=== PATIENT | female | born 1985 | race African-American/Black ===

== ENCOUNTER 2017-04-26 03:22 | Inpatient (IN) | payer OTHER ==
[~2017-04-26] VITALS: Ht 165.1 cm; Wt 109.8 kg
[~2017-04-26 03:22] MED LIST: ADULT LOW DOSE81 MG PO; ASPIRIN CHILDRE81 MG PO; CARDIZEM CD120 MG PO; CYCLOBENZAPRINE10 M1 PO; FLEXERIL10 MG PO; IBUPROFEN800 M1 PO; LASIX20 MG PO; LEXAPRO20 M1 PO; XANAX0.5 M1 PO
--- NOTE | 2017-04-26 04:07 | ED CARDIAC/CP/PALPITATIONS ---
History of Present Illness General Chief Complaint: Chest Pain Stated Complaint: PER BROTHER"SHE IS IN A-FIB" Source: patient Exam Limitations: no limitations Vital Signs & Intake/Output Vital Signs & Intake/Output Vital Signs Date Time Temp Pulse Resp B/P B/P Pulse O2 O2 Flow FiO2 Mean Ox Delivery Rate 04/26 0649 96.9 76 18 1107/71 99 Room Air 04/26 0637 74 101/63 04/26 0626 98.0 120 20 122/67 04/26 0620 98.0 120 20 122/67 99 Room Air 04/26 0502 78 114/55 04/26 0447 98.0 100 22 136/76 04/26 0447 98.0 100 22 136/76 100 Room Air 04/26 0333 96.7 105 22 151/72 100 Room Air Allergies Coded Allergies: apple (Severe, THROAT ITCHING 12/29/16) Reconcile Medications Alprazolam (Xanax) 0.5 MG TABLET 1 TAB PO BIDP PRN ANXIEY (Reported) Aspirin (Adult Low Dose Aspirin EC) 81 MG TABLET.DR 1 TAB PO DAILY ANTICOAG Escitalopram Oxalate (Lexapro) 20 MG TABLET 1 TAB PO DAILY DEPRESSION ( Reported) Triage Note: 31/ PRESENTS TO ED WITH C/C OF LEFT CHEST PAIN 5/10 WHICH RADIATES TO THE CENTER. NOTED SLIGHT ANXIOUS. PT STATES CHEST PAIN STARTED 15 MINUTES PRIOR TO ARRIVAL HERE. NO DIAPHORESIS. PT HAS HISTORY OF AFIB. PLACED ON HEART MONITOR. AFIB 96-108 BPM. PT REPORTS THAT USUALLY "IF I TAKE MY XANAX IT CONVERTS ITSELF" ADMITS TO 1MG XANAX PRIOR TO ARRIVAL. PT ON SCHEDULE DOSE OF ASPIRIN 81MG PO DAILY. NO C/O SHORTNESS OF BREATHING. EKG DONE. NOTED AFIB. AWAITING EVAL. Triage Nurses Notes Reviewed? yes Onset: Morning Duration: hour(s):, continues in ED, waxing and waning Timing: single episode today Quality/Severity: moderate, pressure Location: LEFT CHEST Radiation: RIGHT CHEST Activities at Onset: rest Prior Chest Pain/Card Workup: PRIOR CP ASSOC WITH EPISODE OF A FIB : No Patient currently breastfeeds: No HPI: Patient presents for evaluation of an episode of atrial fibrillation that occurred abruptly between 2:15 and 2:30 this morning while lying in bed at home. Patient states that she is having a squeezing left chest pain with occasional radiation to the right side and dyspnea. She denies any associated leg swelling caffeine use or use of decongestants. She has had a prior episode of atrial fibrillation with a similar symptom complex. She took a Xanax in an attempt to break the dysrhythmia but it didn't work this time. Patient states she drank a glass of alcohol last night. She denies use of drugs or tobacco. Past History Travel History Traveled to [place] past 21 day No Medical History Any Pertinent Medical History? see below for history Neurological: NONE EENT: NONE Cardiovascular: AFIB Respiratory: asthma Gastrointestinal: NONE Hepatic: NONE Renal: NONE Musculoskeletal: NONE Psychiatric: NONE Endocrine: NONE Blood Disorders: NONE Cancer(s): NONE SECTION WEAVER/Reproductive: PCOS History of MRSA: No History of VRE: No History of CDIFF: No Surgical History Surgical History: non-contributory Psychosocial History Who do you live with Mother Services at Home None What is your primary language Chinese Tobacco Use: Never used ETOH Use: occasional use Illicit Drug Use: denies illicit drug use Family History Family History, If Any: MOTHER (DM). Diabetes mellitus FATHER (DM). Diabetes mellitus Hx Contributory? No Review of Systems Review of Systems Constitutional: Reports: no symptoms. EENTM: Reports: no symptoms. Respiratory: Reports: no symptoms. Cardiovascular: Reports: see HPI. GI: Reports: no symptoms. Genitourinary: Reports: no symptoms. Musculoskeletal: Reports: no symptoms. Skin: Reports: no symptoms. Neurological/Psychological: Reports: no symptoms. Hematologic/Endocrine: Reports: no symptoms. Immunologic/Allergic: Reports: no symptoms. All Other Systems: Reviewed and Negative Physical Exam Physical Exam Cardiovascular: SEE BELOW Comments: Gen.: Well-nourished, well-developed, no acute respiratory distress. Head: Normocephalic, atraumatic. Eyes: Normal inspection bilaterally Ears: Normal inspection bilaterally Nose: Normal inspection Throat/mouth : Moist mucosa Neck: Supple, full range of motion, no goiter Heart: IRRegular rate and rhythm, no murmurs rubs or gallops Lungs: Clear to auscultation bilaterally with normal air entry Chest: Nontender Back: Normal range of motion Abdomen: Soft, nontender, nondistended, normal bowel sounds Extremities: Normal range of motion grossly, equal radial pulses, no cyanosis clubbing or edema Neurologic: Cranial nerves grossly intact, speech is clear Skin: warm and dry Psychiatric: Calm, cooperative, no apparent delusions or hallucinations Core Measures ACS in differential dx? Yes CVA/TIA Diagnosis No Sepsis Present: No Sepsis Focused Exam Completed? No Progress Differential Diagnosis: AMI, atrial fibrillation, hypovolemia, PSVT, PVCs/PACs, V-fib/V-Tach, WPW syndrome Plan of Care: Orders Procedure Date/time Status Heart Healthy Diet 04/26 L Active Misc Message 04/26 0701 Active ED Holding Orders 04/26 0701 Active Admit to inpatient 04/26 07 Active Vital Signs 04/26 07 Active Code Status 04/26 0701 Active THYROID STIMULATING HORMONE 04/26 0406 Complete TROPONIN LEVEL 04/26 0406 Complete T3 UPTAKE (THYROXINE BIND CAP) 04/26 0406 Complete THYROXINE 04/26 0406 Complete PARTIAL THROMBOPLASTIN TIME 04/26 0406 Complete PROTHROMBIN TIME 04/26 0406 Complete MAGNESIUM 04/26 0406 Complete CBC WITHOUT DIFFERENTIAL 04/26 0406 Complete BASIC METABOLIC PANEL 04/26 0406 Complete EKG 04/26 0326 Active Current Medications Sig/Oliver Start time Last Medication Dose Stop Time Status Admin Diltiazem HCl 125 MG Q16H 04/26 0545 AC 04/26 (Cardizem DRIP) 0623 Sodium Chloride 100 ML (Normal Saline 0.9%) Laboratory Tests 04/26/17 0450: Anion Gap 12, Estimated GFR > 60, BUN/Creatinine Ratio 20.0, Glucose 93, Calcium 9.3, Magnesium 1.6, Troponin I < 0.01, TSH 3.980, Thyroxine (T4) 8.6, Thyroxine Binding Indx 31.0, PT 11.8, INR 1.08, APTT 32 04/26/17 0400: CBC w Diff MAN DIFF ORDERED, RBC 4.51, MCV 89.7, MCH 29.3, MCHC 32.7 L, RDW 14.0, MPV 8.6, Gran % 62.4, Lymphocytes % 30.5, Monocytes % 5.4, Eosinophils % 1.4, Basophils % 0.3, Absolute Granulocytes 7.9 H, Absolute Lymphocytes 3.9 H, Absolute Monocytes 0.7 H, Absolute Eosinophils 0.2, Absolute Basophils 0, Platelet Estimate ADEQUATE, Polychromasia 1+ Initial ED EKG: rate (102), AFIB Prior EKG: unchanged (unchanged aside from rate) Comments: 04/26/2017 5:38:40 AM although it seemed that TAMMY might break into a normal sinus rhythm, her heart rate has begun to increase again. I have ordered a Cardizem drip. Incidentally she nodded off to sleep. 04/26/2017 6:16:14 AM heart rate remains elevated so I have ordered a second Cardizem bolus. I am paging Dr. Contreras. 04/26/2017 6:27:24 AM I have updated Dr. Contreras who wishes to hold off on anticoagulation at this time. Hospitalist paged. Departure Departure Disposition: STILL A PATIENT Condition: Stable Clinical Impression Primary Impression: Paroxysmal atrial fibrillation Secondary Impressions: Chest pain Qualifiers: Chest pain type: unspecified Qualified Code: R07.9 - Chest pain, unspecified Referrals: Jessica Andino MD (PCP/Family) Departure Forms: Customer Survey General Discharge Information Admission Note Spoke With: Walter Barroso MD Documentation of Exam: Documentation of any treatments & extenuating circumstances including Concerns Regarding Discharge (functional status, medication knowledge or non-compliance, living conditions, etc.) that warrant an admission rather than observation: Patient presents in a prolonged paroxysm of atrial fibrillation, placing her at high risk of tachycardia dysrhythmia, hypotension, cardioembolic phenomenon and stroke. Patient also experiences significant chest pain when she has paroxysms of atrial fibrillation. She is not currently taking any medications to control rate nor is she on anticoagulation. Given her chest pain and atrial fibrillation I do not feel she is a good candidate for outpatient management. Her heart rate tends to accelerate when she exerts herself and this puts her at increased risk of an adverse outcome if outpatient management were attempted. In addition the patient would not be on a continuous park recreation manager for the possibility of tachydysrhythmias. Given this I feel she requires hospitalization for continuous cardiac monitoring and serial troponins and EKGs. Cardiology consultation should be obtained and patient's heart rate controlled with IV Cardizem drip. Echocardiogram should be considered to assess for valvular dysfunction. Initiation of medical management to control heart rate and to prophylax against cardioembolism should be initiated. Given the patient' s age, electrophysiologic studies for possible ablation therapy should be considered. At this point it is difficult to predict how long the patient will be in this paroxysm of atrial fibrillation. I feel she will require a multiple day hospitalization. Critical Care Note Critical Care Note Critical Care Time: 30-74 min
[2017-04-26 04:55] LABS: ABSOLUTE BASOPHIL COUNT 0 /CUMM (0.0-0.2); ABSOLUTE EOSINOPHIL COUNT 0.2 /CUMM (0.0-0.7); ABSOLUTE GRANULOCYTE CT 7.9 /CUMM (1.4-6.5); ABSOLUTE LYMPH COUNT 3.9 /CUMM (1.2-3.4); ABSOLUTE MONOCYTE COUNT 0.7 /CUMM (0.10-0.60); BASOPHIL % 0.3 % (0.0-2.0); EOSINOPHIL % 1.4 % (0-5); GRANULOCYTE % 62.4 % (42.2-75.2); HEMATOCRIT 40.4 % (37-47); MEAN CORPUSCULAR HGB 29.3 PG (27.0-31.0); MEAN CORPUSCULAR HGB CONC 32.7 G/DL (33.0-37.0); MEAN CORPUSCULAR VOLUME 89.7 FL (81.0-99.0); MEAN PLATELET VOLUME 8.6 FL (7.4-10.4); PLATELET COUNT 347 /CUMM (130-400); RED BLOOD CELL CT 4.51 /CUMM (4.20-5.40); WHITE BLOOD CELL COUNT 12.7 /CUMM (4.8-10.8)
[2017-04-26 05:16] LABS: PT 11.8 SEC (9.4-12.5); PTT 32 SEC (25-37)
--- NOTE | 2017-04-26 09:22 | History & Physical ---
AkilajodieemilieJosehernando 04/26/17 0922: General Information and HPI MD Statement: I have seen and personally examined TAMMY DIMAS and documented this H&P. The patient is a 31 year old F who presented with a patient stated chief complaint of chest pain and palpitations History of Present Illness: Ms Dimas is a 31 year old woman w/ a PMHx of paroxymal atrial fibrillation (dx '2013 and episode on 12/2017 w/ spontaneous cardioversion) not on any anticoagulant/ablation done, PCOS, asthma came to the hospital with a chief concern of left-sided chest pain radiating to the right side, and an episode of palpitations. Chest pain started when she started having palpitations around 240 AM, pain located on the left side of the chest described it as squeezing pain, severity 7 /10; radiation to right side and left side of neck, aggravated by exertion and relieved after receiving morphine in the ED, lasted for grace an hour. Also reported associated dyspnea on exertion when she walked to the bathroom at the time. No diaphoresis, or loss of consciousness, vision changes noted. She also reported palpitations, which is the third episode so far since 2013 with last episode less than a week ago which resolved after taking xanax. Episode started around 240 AM, and continues to have palpitations. Not on any anticoagulant, rate controlling medications. Reported use of alcohol last night, glass of wine which is unusual for her. No report of use of intravenous drug use or cocaine. No neurological deficits, except some eye twitching at that time. No abdominal pain, dysuria, cough, fever or other signs of infection. Allergies/Medications Allergies: Coded Allergies: apple (Severe, THROAT ITCHING 12/29/16) Home Med list Alprazolam (Xanax) 0.5 MG TABLET 1 TAB PO BIDP PRN ANXIEY (Reported) Aspirin (Adult Low Dose Aspirin EC) 81 MG TABLET.DR 1 TAB PO DAILY ANTICOAG Escitalopram Oxalate (Lexapro) 20 MG TABLET 1 TAB PO DAILY DEPRESSION ( Reported) Past History Travel History Traveled to [place] past 21 day No Medical History Neurological: NONE EENT: NONE Cardiovascular: AFIB Respiratory: asthma Gastrointestinal: NONE Hepatic: NONE Renal: NONE Musculoskeletal: NONE Psychiatric: NONE Endocrine: NONE Blood Disorders: NONE Cancer(s): NONE 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 Diabetes mellitus FATHER (DM). Diabetes mellitus Psychosocial History Who Do You Live With? spouse, child Services at Home: None ETOH Use: occasional use Illicit Drug Use: denies illicit drug use Functional Ability ADLs Independent: dressing, eating, toileting, bathing. Ambulation: independent IADLs Independent: shopping, housework, finances, food prep, telephone, transportation , medication admin. Review of Systems Review of Systems Constitutional: Reports: see HPI. Exam & Diagnostic Data Last 24 Hrs of Vital Signs/I&O Vital Signs Date Time Temp Pulse Resp B/P B/P Pulse O2 O2 Flow FiO2 Mean Ox Delivery Rate 04/26 0940 97.6 78 18 102/70 98 Room Air 04/26 0845 97.4 78 20 108/56 100 Room Air 04/26 0649 96.9 76 18 1107/71 99 Room Air 04/26 0637 74 101/63 04/26 0626 98.0 120 20 122/67 04/26 0620 98.0 120 20 122/67 99 Room Air 04/26 0502 78 114/55 04/26 0447 98.0 100 22 136/76 04/26 0447 98.0 100 22 136/76 100 Room Air 04/26 0333 96.7 105 22 151/72 100 Room Air Intake & Output 04/26 1600 04/26 0800 04/26 0000 Intake Total 0 Output Total Balance 0 Intake, Oral 0 Patient 244 lb Weight Weight Reported by Patient Measurement Method Physical Exam General Appearance No Acute Distress Skin No Rashes, No Breakdown Skin Temp/Moisture Exam: Warm/Dry Sepsis Skin Exam (color): Normal for Ethnicity HEENT Atraumatic, PERRLA, EOMI Neck Supple Lymphatic Axillary nl, Cervical nl Cardiovascular Normal S1, Normal S2, irregularly irregular pulse Lungs Normal Air Movement Abdomen Normal Bowel Sounds, Soft, No Tenderness, No Hepatospenomegaly Neurological Normal Speech, Strength at 5/5 X4 Ext, Normal Tone, Sensation Intact, Cranial Nerves 3-12 NL, Reflexes 2+ Extremities No Clubbing, No Cyanosis, No Edema, Normal Pulses Vascular Pulses Symmetrical Sepsis Peripheral Pulse Location: Dorsalis Pedis Sepsis Peripheral Pulse Exam: Bounding Last 24 Hrs of Labs/Teddy: Laboratory Tests 04/26/17 0450: Anion Gap 12, Estimated GFR > 60, BUN/Creatinine Ratio 20.0, Glucose 93, Calcium 9.3, Magnesium 1.6, Troponin I < 0.01, TSH 3.980, Thyroxine (T4) 8.6, Thyroxine Binding Indx 31.0, PT 11.8, INR 1.08, APTT 32 04/26/17 0400: CBC w Diff MAN DIFF ORDERED, RBC 4.51, MCV 89.7, MCH 29.3, MCHC 32.7 L, RDW 14.0, MPV 8.6, Gran % 62.4, Lymphocytes % 30.5, Monocytes % 5.4, Eosinophils % 1.4, Basophils % 0.3, Absolute Granulocytes 7.9 H, Absolute Lymphocytes 3.9 H, Absolute Monocytes 0.7 H, Absolute Eosinophils 0.2, Absolute Basophils 0, Platelet Estimate ADEQUATE, Polychromasia 1+ Assessment/Plan Assessment: Ms Dimas is a 31 year old woman w/ a PMHx of paroxymal atrial fibrillation (dx '2013, recent episodes 12/2017 w/ spontaneous cardioversion, and one week ago) not on any anticoagulant/ablation done, PCOS, asthma came to the hospital with a chief concern of left-sided chest pain radiating to the right side, and an episode of palpitations likely due to atrial fibrillation. At the time of admission, vitals-temperature 96.7, pulse rate 105, respiration 22, blood pressure 151/72, 100% on room air. Pertinent lab findings: WBC 12.7 (likely reactive, with no granulocytosis), hemoglobin 13.2, platelets 347. Electrolytes-sodium 141, potassium 4.1, magnesium 1.6. Renal function-BUN 16, creatinine 0.8. Cardiac enzymes-troponin I is 0.01. TSH 3.98. INR 1.08. Last echo 2013 revealed Normal left ventricular systolic function. Left ventricular wall thickness within upper limits of normal.No significant valvular abnormalities noted. EKG reveals absent P waves, irregularly irregular RR intervals, HR well controlled. No STTWI. Problem list: #1 paroxysmal A. fib #2 unstable angina Etiology in this case of this arrhythmia with seemingly disorganized atrial depolarizations likely atrial fibrillation. Immediate treatment becomes imperative because it causes loss of organized atrial contractions and rapid ventricular rate that decreases his cardiac output and makes the prone to embolus formation, but currently is rate controlled. Etiology of Afib is likely recent alcohol use or obesity. History indicates that the symptoms began < 48 hours, which would direct the treatment options such as cardioversion and anticoagulation. Other differentials include atrial flutter with atypical AV block, multifocal atrial tachycardia, sinus rhythm with frequent PACs. CHADVASC score 1. Wells score of 1.5. Admit the patient to telemetry service Monitor vitals closely for changes in hemodynamic status. Immediate synchronized electrical cardioversion if the patient is unstable. Monitor for fever. She was started on iv cardizem, which could be continued. Will change it to po betablocker after discussing w/ Dr. Contreras. check utox Echocardiogram to evaluate valvular fn and EF. If the heart rate is not adequately controlled consider amiodarone for refractory atrial fibrillation. Plan for elective cardioversion with making sure the patient is anticoagulated with therapeutic levels for at least 4 weeks. But would defer the decision to the apprentice cosmetologist at this time. Would also consider work up for PE. Continue ASA. Considering her chest pain, she should get loading dose of ASA. Serial ekgs and cardiac enzymes Cardiology consult. As Ranked By This Provider Problem List: 1. Chest pain Qualifiers Chest pain type: unspecified Qualified Code: R07.9 - Chest pain, unspecified 2. Paroxysmal a-fib 3. Dyspnea Core Measures/Misc (10/27) Acute Coronary Syndrome ACS Diagnosis: Yes Congestive Heart Failure Congestive Heart Failure Diagnosis No Cerebrovascular Accident CVA/TIA Diagnosis: No VTE (View Protocol) VTE Risk Factors No risk factors No Mechanical VTE Prophylaxis d/t LowRisk-No Interven Req'd No VTE Pharm Prophylaxis d/t LowRisk-No Interven Req'd Sepsis (View protocol) Sepsis Present: No Walter Barroso MD 04/26/17 1428: Resident Review Statement Resident Statement: examined this patient, discussed with pr internship, agreed with pr internship, discussed with nursing Attending MD Review Statement Attending Statement Attending MD Statement: examined this patient, discuss w/resident/PA/COORDINATOR VOLUNTEER SERVICES, agreed w/resident/PA/COORDINATOR VOLUNTEER SERVICES, discussed with nursing Attending Assessment/Plan: Ms. Kauffman is a 31-year-old female with a history of paroxysmal atrial fibrillation, has not undergone cardioversion, has been spontaneously reverted back to sinus rhythm presents with complaints of palpitation and chest pain located on the left side. On arrival in the ER found to be tachycardic and was given a bolus of Cardizem push and was started on Cardizem infusion. Currently patient denies specific symptoms of chest pain shortness of breath lightheadedness dizziness. Examination blood pressure is 102/70 heart rate is 78 patient is afebrile and breathing comfortably and 18 bpm Troponins are negative initially and will be trended. EKG is showing atrial fibrillation with a rate of about 75. Echocardiogram obtained 2 years ago shows preserved LV function with no significant valvular abnormalities. Assessment and plan 1. Paroxysmal atrial fibrillation 2. Chest pain 3. Overweight/obesity Continue with Cardizem infusion. Plan to initiate beta landon and then wean down the Cardizem drip. Thyroid function within normal limits. Patient needs to be tested for obstructive sleep apnea as an outpatient. Appreciate cardiology recommendations.
[2017-04-26 09:40] VITALS: BP 102/70
[2017-04-26 14:55] VITALS: BP 90/62
[2017-04-26 22:44] VITALS: BP 96/66
[2017-04-27 07:06] VITALS: BP 102/88
[2017-04-27 07:29] LABS: ABSOLUTE BASOPHIL COUNT 0 /CUMM (0.0-0.2); ABSOLUTE EOSINOPHIL COUNT 0.2 /CUMM (0.0-0.7); ABSOLUTE GRANULOCYTE CT 4.8 /CUMM (1.4-6.5); ABSOLUTE LYMPH COUNT 3.4 /CUMM (1.2-3.4); ABSOLUTE MONOCYTE COUNT 0.5 /CUMM (0.10-0.60); BASOPHIL % 0.3 % (0.0-2.0); GRANULOCYTE % 53.7 % (42.2-75.2); HEMATOCRIT 37.8 % (37-47); MEAN CORPUSCULAR HGB 29.4 PG (27.0-31.0); MEAN CORPUSCULAR HGB CONC 32.8 G/DL (33.0-37.0); MEAN CORPUSCULAR VOLUME 89.8 FL (81.0-99.0); MEAN PLATELET VOLUME 8.5 FL (7.4-10.4); PLATELET COUNT 335 /CUMM (130-400); RBC DISTRIBUTION WIDTH 13.8 % (11.5-14.5); RED BLOOD CELL CT 4.21 /CUMM (4.20-5.40)
--- NOTE | 2017-04-27 09:00 | PN- Housestaff ---
Samantha ARELLANO,Nella 04/27/17 0859: Subjective Follow-up For: 1. Paroxysmal atrial fibrillation 2. Chest pain 3. Overweight/obesity Tele-Events Since Last Visit: Heart rate dropped down to 50, A. fib, Subjective: Patient was seen and examined at bedside, she only complains of shortness of breath when moving, her heart rate dropped down to the 50s overnight and Cardizem drip had to be stopped Review of Systems Constitutional: Reports: see HPI. Objective Last 24 Hrs of Vital Signs/I&O Vital Signs Date Time Temp Pulse Resp B/P B/P Pulse O2 O2 Flow FiO2 Mean Ox Delivery Rate 04/27 0706 98.2 82 20 102/88 97 04/26 2244 98.3 80 18 96/66 99 Room Air 04/26 1455 97.7 72 18 90/62 97 Room Air 04/26 0940 97.6 78 18 102/70 98 Room Air Physical Exam General Appearance: Alert, Oriented X3, Cooperative, No Acute Distress Skin: No Rashes, No Breakdown, No Significant Lesion HEENT: Atraumatic, PERRLA, EOMI, Mucous Membr. moist/pink Neck: Supple, No JVD Cardiovascular: Normal S1, Normal S2, No Murmurs Lungs: Clear to Auscultation Abdomen: Normal Bowel Sounds, Soft, No Tenderness Neurological: Normal Speech, Strength at 5/5 X4 Ext, Normal Tone, Sensation Intact Extremities: No Clubbing, No Cyanosis, No Edema Vascular: Normal Pulses Assessment/Plan Assessment: Ms Dahl is a 31 year old woman w/ a PMHx of paroxymal atrial fibrillation (dx '2013, recent episodes 12/2017 w/ spontaneous cardioversion, and one week ago) not on any anticoagulant/ablation done, PCOS, asthma came to the hospital with a chief concern of left-sided chest pain radiating to the right side, and an episode of palpitations likely due to atrial fibrillation. History indicates that the symptoms began < 48 hours, which would direct the treatment options such as cardioversion and anticoagulation. Other differentials include atrial flutter with atypical AV block, multifocal atrial tachycardia, sinus rhythm with frequent PACs. CHADVASC score 1. Wells score of 1.5. Problem list: #1 paroxysmal A. fib #2 unstable angina Plan: Continue to monitor on elementary ell teacher vitals closely for changes in hemodynamic status. Immediate synchronized electrical cardioversion if the patient is unstable. Monitor for fever. DC Cardizem drip due to bradycardia Start metoprolol 12.5 twice daily for rate control Echocardiogram to evaluate valvular fn and EF. If the heart rate is not adequately controlled consider amiodarone for refractory atrial fibrillation. Plan for elective cardioversion with making sure the patient is anticoagulated with therapeutic levels for at least 4 weeks. But would defer the decision to the supervisor extrusion at this time. Would also consider work up for PE. Continue ASA. Considering her chest pain, she should get loading dose of ASA. Serial ekgs and cardiac enzymes were negative which ruled out ACS Follow-up on cardiology recommendation Full code Heart healthy diet DVT prophylaxis with subcutaneous heparin Problem List: 1. Paroxysmal a-fib Pain Ratin Pain Location: N/A Pain Goal: Remain pain free Pain Plan: PATHW[facility] Tomorrow's Labs & Rationales: CBC BEP Walter Barroso MD 04/27/17 1227: Attending MD Review Statement Attending Statement Attending MD Statement: examined this patient, discuss w/resident/PA/STEAM BOX TENDER, agreed w/resident/PA/STEAM BOX TENDER, reviewed EMR data (avail) Attending Assessment/Plan: Ms. Kauffman is a 31-year-old female with a history of paroxysmal atrial fibrillation, has not undergone cardioversion in the past, has been spontaneously reverted back to sinus rhythm presents with complaints of palpitations and chest pain located on the left side. On arrival in the ER found to be tachycardic and was given a bolus of Cardizem push and was started on Cardizem infusion. Troponins has been negative. Overnight patient became bradycardic into the 40s and 50s. Patient underwent echocardiogram this morning. Patient is complaining of shortness of breath and palpitations. Assessment and plan 1. Paroxysmal atrial fibrillation 2. Chest pain 3. Overweight/obesity Initiated on oral beta blockers, cardizem infusion discontinued. Thyroid function within normal limits. Patient needs to be tested for obstructive sleep apnea as an outpatient. Appreciate cardiology recommendations. We will follow up on chest x-ray and proBNP.
--- NOTE | 2017-04-27 09:29 | PN- Cardiology ---
Subjective Subjective: The patient is doing okay, however, she remains mildly short of breath and continues to have palpitations with activity. No other cardiac symptoms. She remains in atrial fibrillation. Rate is largely well controlled except with activity. Objective Vital Signs and I&Os Vital Signs Date Time Temp Pulse Resp B/P B/P Pulse O2 O2 Flow FiO2 Mean Ox Delivery Rate 04/27 0706 98.2 82 20 102/88 97 04/26 2244 98.3 80 18 96/66 99 Room Air 04/26 1455 97.7 72 18 90/62 97 Room Air 04/26 0940 97.6 78 18 102/70 98 Room Air Intake & Output 04/27 1600 04/27 0800 04/27 0000 04/26 1600 04/26 0800 04/26 0000 Intake Total 530 0 Output Total Balance 530 0 Intake, IV 30 Intake, Oral 500 0 Patient 242 lb 244 lb Weight Weight Reported by Patient Reported by Patient Measurement Method Physical Exam: General Appearance No Acute Distress Skin normal HEENT Atraumatic, PERRLA, EOMI Neck Supple, JVP normal, carotids normal bilaterally Lymphatic Axillary nl, Cervical nl Cardiovascular Normal S1, Normal S2, irregularly irregular pulse Lungs clear to auscultation and percussion bilaterally Abdomen Normal Bowel Sounds, Soft, No Tenderness, No Hepatospenomegaly Neurological Normal/nonfocal Extremities No Clubbing, No Cyanosis, No Edema, Normal Pulses Vascular Pulses Symmetrical Current Medications: Current Medications Sig/Oliver Start time Last Medication Dose Route Stop Time Status Admin Acetaminophen 650 MG Q8P PRN 04/26 0930 AC PO Alprazolam 0.5 MG DAILY PRN 04/26 0930 AC 04/26 PO 05/03 0929 1743 Aspirin 325 MG ONCE ONE 04/26 0930 DC 04/26 PO 04/26 0931 1525 Aspirin Buffered 81 MG DAILY 04/27 1000 AC 04/27 PO 0810 Diltiazem HCl 125 MG Q24H 04/26 2300 DC Sodium Chloride 100 ML IV Diltiazem HCl 125 MG Q16H 04/26 0545 DC 04/26 Sodium Chloride 100 ML IV 04/26 2259 2134 Escitalopram Oxalate 20 MG 1700 04/26 1700 AC 04/26 PO 1525 Heparin Sodium 5,000 UNIT Q8 04/26 1400 AC 04/27 (Porcine) SC 0620 Oxycodone HCl 5 MG Q8P PRN 04/26 929 DC PO Tramadol HCl 50 MG Q8P PRN 04/26 929 DC PO Results Last 48 Hrs of Labs/Mics: Laboratory Tests 04/27/17 0601: Anion Gap 9, Estimated GFR > 60, BUN/Creatinine Ratio 18.9, CBC w Diff NO MAN DIFF REQ, RBC 4.21, MCV 89.8, MCH 29.4, MCHC 32.8 L, RDW 13.8, MPV 8.5, Gran % 53.7, Lymphocytes % 38.1, Monocytes % 5.9, Eosinophils % 2.0, Basophils % 0.3, Absolute Granulocytes 4.8, Absolute Lymphocytes 3.4, Absolute Monocytes 0.5, Absolute Eosinophils 0.2, Absolute Basophils 0 04/26/17 1808: Troponin I < 0.01 04/26/17 1255: Troponin I < 0.01 04/26/17 1242: Urine Opiates Screen 2226.00 H, Methadone Screen 61, Barbiturate Screen < 60, Ur Phencyclidine Scrn < 6.00, Amphetamines Screen < 100, U Benzodiazepines Scrn 630 H, Urine Cocaine Screen < 50, Urine Cannabis Screen < 5.00 04/26/17 1004: Urinalysis LIGHT H, Urine Color BLDY H, Urine Clarity HAZY H, Urine pH 5.5, Ur Specific [place] >= 1.030, Urine Protein 100 H, Urine Ketones NEG, Urine Nitrite NEG, Urine Bilirubin NEG@ICTO, Urine Urobilinogen 0.2, Ur Leukocyte Esterase SMALL H, Ur Microscopic SEDIMENT EXAMINED, Urine RBC >75 H, Urine WBC > 75 H, Ur Epithelial Cells MOD H, Urine Bacteria FEW H, Urine Mucus FEW, Urine Hemoglobin LARGE H, Urine Glucose NEG 04/26/17 0450: Anion Gap 12, Estimated GFR > 60, BUN/Creatinine Ratio 20.0, Glucose 93, Calcium 9.3, Magnesium 1.6, Troponin I < 0.01, TSH 3.980, Free T4 1.12, Thyroxine (T4) 8.6, Thyroxine Binding Indx 31.0, PT 11.8, INR 1.08, APTT 32 04/26/17 0400: CBC w Diff MAN DIFF ORDERED, RBC 4.51, MCV 89.7, MCH 29.3, MCHC 32.7 L, RDW 14.0, MPV 8.6, Gran % 62.4, Lymphocytes % 30.5, Monocytes % 5.4, Eosinophils % 1.4, Basophils % 0.3, Absolute Granulocytes 7.9 H, Absolute Lymphocytes 3.9 H, Absolute Monocytes 0.7 H, Absolute Eosinophils 0.2, Absolute Basophils 0, Platelet Estimate ADEQUATE, Polychromasia 1+ Assessment/Plan Assessment/Plan Assessment: 1. Paroxysmal atrial fibrillation 2. Chest pain syndrome in Recommendations: -The patient remains in atrial fibrillation today, with better rate control. She continues to have intermittent symptoms with activity of palpitations and shortness of breath. -I had an extended discussion with the patient about the possible options at the present time. -The patient is reluctant to pursue cardioversion for now and would prefer to watch and see if she converts on her own as she has previously. -Continue metoprolol -If necessary, increase dose to 25 mg twice a day -Start eliquis 5 mg twice a day and subsequent lead discontinue IV heparin -Monitor the patient overnight. -In the morning, if the patient has reverted to sinus rhythm, discharge on current medications for the next week -If the patient has failed to convert on her own, the options would include proceeding to JIMENA cardioversion or discharging the patient on metoprolol and anticoagulation with close outpatient follow-up and eventual JIMENA cardioversion if she does not revert to sinus rhythm on her own. -For now, the patient's preference would be to continue oral medicines, discharge, and reassess in one week. Continue telemetry? Yes
[2017-04-27 14:36] VITALS: BP 118/70
--- NOTE | 2017-04-27 16:19 | RADIOLOGY REPORT ---
EXAMINATION: XR PORTABLE CHEST CLINICAL INFORMATION: Shortness of breath COMPARISON: 06/10/2013, 12/29/2016 TECHNIQUE: Portable frontal view of the chest was obtained. FINDINGS: No significant abnormality is noted involving the heart, lungs, mediastinum, bony thorax or soft tissues. IMPRESSION: No acute cardiopulmonary disease.
--- NOTE | 2017-04-27 20:56 | Event Note ---
Event Note Event Note: S; I was informed millimeters the patient is complaining of shortness of breath. B; Patient is a 31 year old woman w/ a PMHx of paroxymal atrial fibrillation not on any anticoagulant/ablation done, PCOS, asthma was being admitted to the hospital for paroxysmal atrial fibrillation and unstable angina. Cardizem Drip was discontinued yesterday given heart rate bradycardia down to 40s. Vital signs stable with heart rate ranging from 90s to 105. Heart sounds irregular with Normal S1-S2, lungs clear to auscultation A/P; Patient states she started feeling short of breath after she had her dinner, with similar episodes of shortness of breath occurring at home as well shortly after eating. Also complaining of left-sided chest discomfort and palpitations. Denies any cough or wheezing. She uses Symbicort inhaler for asthma at home but states that she hasn't used it in a while. Patient in the meanwhile got out of the bed to use the restroom and heart rate went up to 169. Patient was evaluated Respiratory therapist who did not recommend any breathing treatments at that time given stable vitals and lungs clear on auscultation. Stat Troponin and EKG were obtained which remained negative with no ST-T wave changes. Patient was given 1 dose of Xanax o.5 mg,, patient felt better afterwards. Shortness of breath and chest discomfort likely secondary to tachycardia and anxiety. We'll continue to monitor.
[2017-04-27 22:39] VITALS: BP 124/64
[2017-04-28 06:29] VITALS: BP 92/57
[2017-04-28] MEDS ORDERED: ELIQUIS5 M1 PO (07:33)
[2017-04-28] MEDS ORDERED: METOPROLOL TART25 M1 PO ×2 (07:33→11:23)
--- NOTE | 2017-04-28 07:34 | Patient Discharge Instructions ---
Discharge Instructions General Discharge Information Special Instructions: - Please follow up with your jewel waxer Dr. Contreras within 1-2 weeks of discharge. - Please follow up with your primary care physician within 1-2 weeks of discharge. Inform your primary care physician of this admission to [facility]. - Continue your current medications per discharge instructions. - Please watch for these problems: Fever, Chills, Nausea, Vomiting, Shortness of Breath, Productive Cough, Chest Pain/Discomfort, Abdominal Pain, Active Bleeding or Bloody urine/stool. Diet Continue normal diet: Yes Recommended Diet: Heart Healthy Activity Full Activity/No Limits: Yes Acute Coronary Syndrome Inclusion Criteria At DC or during hospital stay patient has or had the following: ACS DIAGNOSIS No Discharge Core Measures Meds if any: Prescribed or Continued at Discharge Meds if any: NOT Prescribed or Continued at Discharge Congestive Heart Failure Inclusion Criteria At DC or during hospital stay patient has or had the following: CHF DIAGNOSIS No Discharge Core Measures Meds if any: Prescribed or Continued at Discharge Meds if any: NOT Prescribed or Continued at Discharge Cerebrovascular accident Inclusion Criteria At DC or during hospital stay patient has or had the following: CVA/TIA Diagnosis No Discharge Core Measures Meds if any: Prescribed or Continued at Discharge Meds if any: NOT Prescribed or Continued at Discharge Venous thromboembolism Inclusion Criteria VTE Diagnosis No VTE Type NONE VTE Confirmed by (Test) NONE Discharge Core Measures - Per Current guidelines, there needs to be overlap - treatment for the first 5 days of Warfarin therapy. - If discharged on Warfarin prior to 5 days of - overlap therapy, the patient will need to be - assessed for post discharge needs including - *Post discharge parental anticoagulation - *Warfarin and/or parental anticoagulation education - *Follow up date to check INR post discharge At least 5 days overlap therapy as Inpatient No Meds if any: Prescribed or Continued at Discharge Note: Overlap Therapy is Warfarin and Anticoagulant Meds if any: NOT Prescribed or Continued at Discharge Note: Overlap Therapy is Warfarin and Anticoagulant Meds if any: NOT Prescribed or Continued at Discharge
--- NOTE | 2017-04-28 07:59 | PN- Housestaff ---
Liliana Abreu 04/28/17 0759: Subjective Follow-up For: 1. Paroxysmal atrial fibrillation 2. Chest pain 3. Overweight/obesity Tele-Events Since Last Visit: A-fib in 80s once overnight and converted spontaneously to NSR 80s Subjective: No overnight event. Patient denied CP/SOB currently. Denied cardioversion. Would like to be discharged today. No other specific complaint. Review of Systems Constitutional: Reports: see HPI. Objective Last 24 Hrs of Vital Signs/I&O Vital Signs Date Time Temp Pulse Resp B/P B/P Pulse O2 O2 Flow FiO2 Mean Ox Delivery Rate 04/28 628 97.8 81 20 92/57 98 04/28 0000 Room Air 04/27 2239 98.4 110 20 124/64 98 Room Air 04/277 Room Air Room Air 04/279 106 20 138/80 04/27 1436 98.1 106 20 118/70 98 Room Air 04/27 1241 78 118/60 Intake & Output 04/28 1600 04/28 0800 04/28 0000 Intake Total 220 680 Output Total 300 Balance 220 380 Intake, Oral 220 680 Output, Urine 300 Patient 109.769 kg Weight Weight Bed scale Measurement Method Physical Exam General Appearance: Alert, Oriented X3, Cooperative, No Acute Distress Cardiovascular: Regular Rate Lungs: Clear to Auscultation, Normal Air Movement Abdomen: Normal Bowel Sounds, Soft, No Tenderness Neurological: Normal Speech Extremities: No Edema, Normal Pulses Current Medications: Current Medications Sig/Oliver Start time Last Medication Dose Route Stop Time Status Admin Acetaminophen 650 MG Q8P PRN 04/26 0930 AC PO Albuterol Sulfate 2 PUF Q4P PRN 04/27 2145 AC INH Alprazolam 0.5 MG DAILY PRN 04/26 0930 AC 04/27 PO 05/03 0929 2220 Apixaban 5 MG BID 04/27 1412 AC 04/27 PO 2119 Aspirin Buffered 81 MG DAILY 04/27 1000 AC 04/27 PO 0810 Escitalopram Oxalate 20 MG 1700 04/26 1700 AC 04/27 PO 1537 Heparin Sodium 5,000 UNIT Q8 04/26 1400 DC 04/27 (Porcine) SC 1409 Metoprolol Tartrate 12.5 MG BID 04/27 1000 AC 04/27 PO 211 Last 24 Hrs of Lab/Teddy Results Last 24 Hrs of Labs/Mics: Laboratory Tests 04/28/17 0630: Anion Gap 9, Estimated GFR > 60, BUN/Creatinine Ratio 17.8, CBC w Diff NO MAN DIFF REQ, RBC 4.31, MCV 89.2, MCH 29.5, MCHC 33.1, RDW 14.0, MPV 8.4, Gran % 57.3, Lymphocytes % 34.3, Monocytes % 6.2, Eosinophils % 1.9, Basophils % 0.3, Absolute Granulocytes 5.3, Absolute Lymphocytes 3.2, Absolute Monocytes 0.6, Absolute Eosinophils 0.2, Absolute Basophils 0 04/27/17 2200: Troponin I < 0.01 04/27/17 1230: Cvo-T-Rwgikdhaulx Pept Cancelled Assessment/Plan Assessment: Ms Dahl is a 31 year old woman w/ a PMHx of paroxymal atrial fibrillation (dx '2013, recent episodes 12/2017 w/ spontaneous cardioversion, and one week ago) not on any anticoagulant/ablation done, PCOS, asthma came to the hospital with a chief concern of left-sided chest pain radiating to the right side, and an episode of palpitations likely due to atrial fibrillation. History indicates that the symptoms began < 48 hours, which would direct the treatment options such as cardioversion and anticoagulation. Other differentials include atrial flutter with atypical AV block, multifocal atrial tachycardia, sinus rhythm with frequent PACs. CHADVASC score 1. Wells score of 1.5. Problem list: #1 paroxysmal A. fib #2 unstable angina Plan: - Monitor vitals closely for changes in hemodynamic status. Immediate synchronized electrical cardioversion if the patient is unstable. - DCed Cardizem drip due to bradycardia - Started metoprolol 12.5 twice daily for rate control - Pending Echocardiogram to evaluate valvular fn and EF. - Plan for elective cardioversion with making sure the patient is anticoagulated with therapeutic levels for at least 4 weeks. But would defer the decision to the clinical esthetician at this time. However, patient would not want cardioversion for now. - Started on eliquis 5mg bid, as Patient's [id number] score is 1 (Female). However, will resume patient's ASA 81 and discontinue eliquis as patient's age and current normal sinus rhythm would not warrant long-term anticoagulation. - EKG 04/28 AM showed NSR, with negative trop. - Pending discharge and follow-up on cardiology recommendation Full code Heart healthy diet DVT prophylaxis with subcutaneous heparin + ALPS Problem List: 1. Paroxysmal a-fib Pain Ratin Pain Location: NA Pain Goal: Remain pain free Pain Plan: see AP Tomorrow's Labs & Rationales: NUHA Barajas MD,Rachellmariela 04/28/17 1038: Attending MD Review Statement Attending Statement Attending MD Statement: examined this patient, discuss w/resident/PA/REGIONAL TRUCK DRIVER, agreed w/resident/PA/REGIONAL TRUCK DRIVER, reviewed EMR data (avail), discussed with nursing, discussed with case mgmt, amended to note Attending Assessment/Plan: Patient seen and examined. Resting comfortably not in any acute distress. Apparently she converted back to normal sinus rhythm this morning. She remains asymptomatic. She is hemodynamically stable. On examination of heart sounds are regular with no audible murmur. Lungs are clear to auscultation bilaterally. She has no peripheral edema. She appears to be going in and out of atrial fibrillation frequently. Will continue metoprolol orally for rate control and follow-up with the cardiology service regarding other recommendations regarding rate versus rhythm control. Due to her low stroke risk she will be discharged only on aspirin rather than continuing anticoagulation therapy that was initially started. She will be counseled on the need for anticoagulant therapy and its risks. She verbalized understanding. If she is cleared by the cardiology service she may be discharged today and follow-up in the outpatient.
[2017-04-28 08:14] LABS: ABSOLUTE BASOPHIL COUNT 0 /CUMM (0.0-0.2); ABSOLUTE EOSINOPHIL COUNT 0.2 /CUMM (0.0-0.7); ABSOLUTE GRANULOCYTE CT 5.3 /CUMM (1.4-6.5); ABSOLUTE LYMPH COUNT 3.2 /CUMM (1.2-3.4); ABSOLUTE MONOCYTE COUNT 0.6 /CUMM (0.10-0.60); BASOPHIL % 0.3 % (0.0-2.0); EOSINOPHIL % 1.9 % (0-5); GRANULOCYTE % 57.3 % (42.2-75.2); HEMATOCRIT 38.5 % (37-47); MEAN CORPUSCULAR HGB 29.5 PG (27.0-31.0); MEAN CORPUSCULAR HGB CONC 33.1 G/DL (33.0-37.0); MEAN CORPUSCULAR VOLUME 89.2 FL (81.0-99.0); MEAN PLATELET VOLUME 8.4 FL (7.4-10.4); PLATELET COUNT 346 /CUMM (130-400); RED BLOOD CELL CT 4.31 /CUMM (4.20-5.40); WHITE BLOOD CELL COUNT 9.3 /CUMM (4.8-10.8)
[2017-04-28 10:19] VITALS: BP 116/76
--- NOTE | 2017-04-28 11:24 | Discharge Summary ---
Visit Information Visit Dates Admission Date: 04/26/17 Discharge Date: 04/28/2017 Hospital Course Course Attending Physician: Ralph Barajas MD Primary Care Physician: Sina ARELLANO,Jessica Torres Hospital Course: Ms Dahl is a 31 year old woman w/ a PMHx of paroxymal atrial fibrillation (dx '2013, recent episodes 12/2017 w/ spontaneous cardioversion, and one week ago) not on any anticoagulant/ablation done, PCOS, asthma came to the hospital with a chief concern of left-sided chest pain radiating to the right side, and an episode of palpitations likely due to atrial fibrillation. History indicates that the symptoms began < 48 hours, which would direct the treatment options such as cardioversion and anticoagulation. Other differentials include atrial flutter with atypical AV block, multifocal atrial tachycardia, sinus rhythm with frequent PACs. CHADVASC score 1. Wells score of 1.5. On admission, vitals-temperature 96.7, pulse rate 105, respiration 22, blood pressure 151/72, 100% on room air. Pertinent lab findings: WBC 12.7 (likely reactive, with no granulocytosis), hemoglobin 13.2, platelets 347. Electrolytes-sodium 141, potassium 4.1, magnesium 1.6. Renal function-BUN 16, creatinine 0.8. Cardiac enzymes-troponin I is 0.01. TSH 3.98. INR 1.08. Last echo 2013 revealed Normal left ventricular systolic function. Left ventricular wall thickness within upper limits of normal.No significant valvular abnormalities noted. EKG reveals absent P waves, irregularly irregular RR intervals, HR well controlled. No STTWI. Patient was admitted to Telemetry for following management. Problem list: #1 paroxysmal A. fib #2 unstable angina #3 Overweight/obesity Hospital Course: Patient was admitted to telemetry floor and started on vital monitoring, cardizem drip, and a plan for elevative cardioversion if her rate was no adequately controlled. Patient had then spontaneously reverted back to normal sinus rhythm overnight, and became bradycardic into 40s-50s. Cardizem drip was stopped to avoid further araceli event, and started metoprolo 12.5 twice daily for her rate control. Echocardigram showed nomral left ventricular chamber size and systolic function with mild concentric hypertrophy and no resting wall motion abnoramalities. Patient would not like to have cardioversion plan as she had reverted to normal sinus rhythm prior discharge. Patient was started on eliquis 5mg bid, however as Patient's [id number] score is 1 (Female), she was discharged on aspirin 81mg daily same as her home meds prior this admission, that she would not be warrranted for long-term anticoagulation. EKG 3 AM showed NSR, with negative trop prior discharge. Patient was advised to follow up with Dr. Contreras within 1 week of discharge. Full code Heart healthy diet DVT prophylaxis with Eliquis + ALPS Allergies: Coded Allergies: apple (Severe, THROAT ITCHING 12/29/16) tramadol (Intermediate, nausea 04/26/17) Pertinent Lab Results: SERVICE DATE: 04/27/17- EXAM TYPE: RAD - XRY-PORTABLE CHEST XRAY IMPRESSION: No acute cardiopulmonary disease. Disposition Summary Disposition Principal Diagnosis: 1. Paroxysmal atrial fibrillation 2. Unstable Angina 3. Overweight/obesity Additional Diagnosis: As above Discharge Disposition: home or self care Discharge Instructions General Discharge Information Code Status: Full Code Patient's Diet: Heart Healthy Patient's Activity: As tolerated Follow-Up Instructions/Appts: - Please follow up with your entry specialist Dr. Contreras within 1-2 weeks of discharge. - Please follow up with your primary care physician within 1-2 weeks of discharge. Inform your primary care physician of this admission to [facility]. - Continue your current medications per discharge instructions. - Please watch for these problems: Fever, Chills, Nausea, Vomiting, Shortness of Breath, Productive Cough, Chest Pain/Discomfort, Abdominal Pain, Active Bleeding or Bloody urine/stool. Medications at Discharge Discharge Medications: Continue taking these medications: Escitalopram Oxalate (Lexapro) 20 MG TABLET 1 Tablet ORAL DAILY Comments: Last Taken: 04/27/17 Time: 4PM Alprazolam (Xanax) 0.5 MG TABLET 1 Tablet ORAL 2 x Daily as needed as needed for ANXIEY Comments: Last Taken: 04/27/17 Time: 10PM Aspirin (Adult Low Dose Aspirin EC) 81 MG TABLET. 1 Tablet ORAL DAILY Qty = 30 Comments: Last Taken: 04/28/17 Time: 9AM Start taking the following new medications: Metoprolol Tartrate (Metoprolol Tartrate) 25 MG TABLET 12.5 Milligram ORAL TWICE DAILY Qty = 60 No Refills Instructions: . Comments: Last Taken: 04/28/17 Time: 9AM Copies To: Jessica Andino MD
--- NOTE | 2017-04-28 11:52 | PN- Cardiology ---
Subjective Subjective: The patient reports that she is feeling well. No current cardiac symptoms. No chest pain. No shortness of breath. No diaphoresis. No palpitations. No lightheadedness or dizziness. No nausea or vomiting. She complains of mild neck soreness. She has converted from atrial fibrillation to sinus rhythm on telemetry Objective Vital Signs and I&Os Vital Signs Date Time Temp Pulse Resp B/P B/P Pulse O2 O2 Flow FiO2 Mean Ox Delivery Rate 04/28 1020 105 116/76 04/28 1019 105 116/76 04/28 0800 Room Air 04/28 0629 97.8 81 20 92/57 98 04/28 0000 Room Air 04/27 2239 98.4 110 20 124/64 98 Room Air 04/27 2127 Room Air Room Air 04/27 2119 106 20 138/80 04/27 1436 98.1 106 20 118/70 98 Room Air 04/27 1241 78 118/60 Intake & Output 04/28 1600 04/28 0800 04/28 0000 04/27 1600 04/27 0800 04/27 0000 Intake Total 220 680 400 Output Total 300 600 Balance 220 380 -200 Intake, Oral 220 680 400 Output, Urine 300 600 Patient 242 lb Weight Weight Bed scale Measurement Method Physical Exam: Gen: NAD HEENT: normal Lungs: clear to auscultation, normal resp. effort Heart: RRR, S1, S2, no murmurs Abdomen: Soft, nontender, no masses Extremities: No clubbing, cyanosis, or edema. Neuro: Alert and oriented x 3, cranial nerves intact Current Medications: Current Medications Sig/Oliver Start time Last Medication Dose Route Stop Time Status Admin Acetaminophen 650 MG Q8P PRN 04/26 0930 AC PO Albuterol Sulfate 2 PUF Q4P PRN 04/27 2145 AC INH Alprazolam 0.5 MG DAILY PRN 04/26 0930 AC 04/27 PO 05/03 0929 2220 Apixaban 5 MG BID 04/27 1412 AC 04/28 PO 1020 Aspirin Buffered 81 MG DAILY 04/27 1000 AC 04/28 PO 1020 Escitalopram Oxalate 20 MG 1700 04/26 1700 AC 04/27 PO 1537 Heparin Sodium 5,000 UNIT Q8 04/26 1400 DC 04/27 (Porcine) SC 1409 Metoprolol Tartrate 12.5 MG BID 04/27 1000 AC 04/28 PO 1020 Results Last 48 Hrs of Labs/Mics: Laboratory Tests 04/28/17 0630: Anion Gap 9, Estimated GFR > 60, BUN/Creatinine Ratio 17.8, CBC w Diff NO MAN DIFF REQ, RBC 4.31, MCV 89.2, MCH 29.5, MCHC 33.1, RDW 14.0, MPV 8.4, Gran % 57.3, Lymphocytes % 34.3, Monocytes % 6.2, Eosinophils % 1.9, Basophils % 0.3, Absolute Granulocytes 5.3, Absolute Lymphocytes 3.2, Absolute Monocytes 0.6, Absolute Eosinophils 0.2, Absolute Basophils 0 04/27/17 2200: Troponin I < 0.01 04/27/17 1230: Rvr-G-Qjmxubdneor Pept Cancelled 04/27/17 0601: Anion Gap 9, Estimated GFR > 60, BUN/Creatinine Ratio 18.9, Opi-H-Sixhguwhjhe Pept 450 H, CBC w Diff NO MAN DIFF REQ, RBC 4.21, MCV 89.8, MCH 29.4, MCHC 32.8 L, RDW 13.8, MPV 8.5, Gran % 53.7, Lymphocytes % 38.1, Monocytes % 5.9, Eosinophils % 2.0, Basophils % 0.3, Absolute Granulocytes 4.8, Absolute Lymphocytes 3.4, Absolute Monocytes 0.5, Absolute Eosinophils 0.2, Absolute Basophils 0 04/26/17 1808: Troponin I < 0.01 04/26/17 1255: Troponin I < 0.01 04/26/17 1242: Urine Opiates Screen 2226.00 H, Methadone Screen 61, Barbiturate Screen < 60, Ur Phencyclidine Scrn < 6.00, Amphetamines Screen < 100, U Benzodiazepines Scrn 630 H, Urine Cocaine Screen < 50, Urine Cannabis Screen < 5.00 Assessment/Plan Assessment/Plan Assessment: 1. Paroxysmal atrial fibrillation, converted spontaneously to sinus rhythm 2. Chest pain syndrome likely secondary to atrial fibrillation, ruled out for myocardial infarction Plan: * Continue Toprol * Given Delgado-VASC score of 1, I recommend discontinuing Eliquis, and starting aspirin 81 mg p.o. daily * Clear for discharge from cardiac standpoint. * Echocardiogram may be done as an outpatient if not completed in the hospital. * Follow up with Dr. Contreras within 1 week Continue telemetry? Yes
[2017-04-28 12:04] VITALS: BP 122/78
--- NOTE | 2017-04-28 14:09 | ECHOCARDIOGRAM REPORT ---
TAMMY DIMAS Age: 31 : 1985 Gender: F Exam Date: 04/27/2017 09:29 Exam Location: [place] Ht (in): 65 Wt (lb): 244 BSA: 2.31 BP: 102 / 88 Ordering Physician: Kizzy Steward MD Referring Physician: Daja Contreras MD Technologist: Nasreen Boothe [facility] Room Number: 179-02 Indications: AFIB/FLUTTER Rhythm: Atrial fibrillation Technical Quality: Fair, Technically difficult study FINDINGS Left Ventricle Normal size left ventricle. No obvious regional wall motion abnormalities. Normal left ventricular ejection fraction estimated at 60-65%. Left ventricular wall thickness increased. Right Ventricle Right ventricle not well visualized, grossly normal. Right Atrium Normal right atrial size. Left Atrium Normal left atrial size. Mitral Valve Mitral valve thickened. Trace mitral regurgitation. Aortic Valve Structurally normal trileaflet aortic valve. No aortic stenosis. No aortic regurgitation. Tricuspid Valve Tricuspid valve not well visualized, grossly normal. Pulmonic Valve Structurally normal pulmonic valve. Pericardium No pericardial effusion. Great Vessels Aortic root and proximal ascending aorta not well visualized, grossly normal. CONCLUSIONS 1. This was a technically difficult examination due to the patient's body habitus. 2. The aortic valve is trileaflet and normal 3. Minimal thickening of the mitral leaflets is noted with minimal mitral insufficiency 4. THere is no pericardial fluid present 5. THe left ventricular chamber size and systolic function appear normal with mild concentric hypertrophy and no resting wall motion abnoramalities. 6. Minimal to mild pulmonic insufficiency is present. The RV systolic pressure was not accurately assessed on this examination. Daja Contreras M.D. (Electronically Signed) Final Date: 28 April 2017 14:09 MEASUREMENTS (Male / Female) Normal Values 2D ECHO LV Diastolic Diameter PLAX 3.0 cm 4.2 - 5.9 / 3.9 - 5.3 cm LV Systolic Diameter PLAX 2.1 cm 2.1 - 4.0 cm LV Fractional Shortening PLAX 30.0 % 25 - 46 % LV Ejection Fraction 2D Teich 58.8 % IVS Diastolic Thickness 1.4 cm LVPW Diastolic Thickness 1.4 cm LV Relative Wall Thickness 0.9 RV Internal Dim ED PLAX 2.5 cm 1.9 - 3.8 cm LVOT Diameter 2.0 cm Aortic Root Diameter 2.3 cm LA Systolic Diameter LX 3.1 cm 3.0 - 4.0 / 2.7 - 3.8 cm LA Volume 19.0 cm 18 - 58 / 22 - 52 cm Ascending Aorta Diameter 2.4 cm DOPPLER AV Peak Velocity 112.0 cm/s AV Peak Gradient 5.0 mmHg AV Mean Velocity 83.1 cm/s AV Mean Gradient 3.0 mmHg AV Velocity Time Integral 20.3 cm LVOT Peak Velocity 88.0 cm/s LVOT Peak Gradient 3.1 mmHg LVOT Mean Velocity 62.5 cm/s LVOT Mean Gradient 2.0 mmHg LVOT Velocity Time Integral 15.2 cm LVOT Stroke Volume 47.8 cm AV Area Cont Eq vti 2.4 cm AV Area Cont Eq pk 2.5 cm MV Peak Velocity 108.0 cm/s MV Peak Gradient 4.7 mmHg MV Mean Velocity 60.7 cm/s MV Mean Gradient 2.0 mmHg Mitral E Point Velocity 98.7 cm/s MV PHT Velocity 112.0 cm/s MV Deceleration [place] 384.0 cm/s MV Pressure Half Time 87.5 ms MV Area PHT 2.5 cm MV Deceleration Time 251.0 ms PV Peak Velocity 78.6 cm/s PV Peak Gradient 2.5 mmHg PV Mean Velocity 59.2 cm/s PV Mean Gradient 2.0 mmHg PV Velocity Time Integral 18.5 cm LV E' Lateral Velocity 12.9 cm/s Mitral E to LV E' Lateral Ratio 7.7 LV E' Septal Velocity 12.0 cm/s Mitral E to LV E' Septal Ratio 8.2
== END 2017-04-28 13:45 | DRG 309 ==
LOC: ERH 03:22 → ERHI 07:01 → ENRESERV 07:41 → ENTRNSPT 08:48 → EDTRNSPT 09:13 → EDTRNSPTSTS 09:13 → 1NO 09:21 → CMPTRNSPT 09:35 → 1NO 04-28 07:33 → ENPENDDIS 04-28 11:25 → 1NO 04-28 13:45
PROVIDERS: Emergency Medicine; Internal Medicine Endocrinology, Diabetes & Metabolism; Student in an Organized Health Care Education/Training Program
DX: I48.0 Paroxysmal atrial fibrillation (principal); Z68.41 Body mass index [BMI] 40.0-44.9, adult; E28.2 Polycystic ovarian syndrome; J45.909 Unspecified asthma, uncomplicated; E66.9 Obesity, unspecified; R07.9 Chest pain, unspecified; Z91.018 Allergy to other foods
CPT/HCPCS: 1NSP; 36415; 36592; 71045; 80307; 81001; 82436; 93005; 93010; 93306; J1644; J3490